=== PATIENT | female | born 1950 | race Caucasian/White ===

== ENCOUNTER 2021-08-19 16:00 | Inpatient (IN) ==
[2021-08-19 20:45] LABS: Basophils # 0.1 K/mcL (0.0-0.2); Basophils % 0.4 %; Hematocrit 39.7 % (35.3-44.9); Hemoglobin 12.2 g/dL (11.5-15.4); Immature Granulocytes % 0.5 % (0-4); Lymphocytes # 2.8 K/mcL (0.6-4.6); Lymphocytes % 17.4 %; Mean Corpuscular HGB Conc 30.7 g/dL (31.6-35.5); Mean Corpuscular Hemoglobin 28.6 pg (28.0-33.3); Mean Platelet Volume 9.8 fL (9.4-12.4); Monocytes # 0.9 K/mcL (0.0-1.3); Monocytes % 5.6 %; Neutrophils # 12.3 K/mcL (1.6-8.9); Platelet Count 475 K/mcL (140-400); Red Blood Count 4.27 M/mcL (3.82-4.97); Red Cell Distribution Width 19.3 % (11.5-14.5); Segmented Neutrophils % 76.1 %; White Blood Count 16.2 K/mcL (4.3-11.1)
[2021-08-19 21:02] LABS: Albumin 3.7 g/dL (3.5-5.7); Albumin/Globulin Ratio 0.8 (1.1-2.2); Bilirubin,Total 0.4 mg/dL (0.3-1.0); Calcium 10.6 mg/dL (8.6-10.3); Globulin 4.6 g/dL (2.4-3.5); Magnesium 2.4 mg/dL (1.6-2.6); Potassium 5.1 mEq/L (3.5-5.1); Total Protein 8.3 g/dL (6.4-8.9)
[2021-08-19 22:06] LABS: Bacteria,Urine Few per hpf (None-Few); Bilirubin,Urine Negative (Negative); Blood,Urine Negative (Negative); Clarity,Urine Turbid (Clear); Color,Urine Yellow (Yellow); Glucose,Urine (UA) Normal (Normal); Hyaline Casts,Urine Few per lpf (None Seen); Ketones,Urine Negative (Negative); Leukocyte Esterase,Urine Moderate (Negative); Mucus,Urine Few per lpf (None-Few); Nitrite,Urine Negative (Negative); PH,Urine 5.5 pH Units (5.0-8.0); Protein,Urine 50 mg/dL (Neg-Trace); Specific Gravity,Urine 1.018 (1.010-1.025); Squamous Epithelial Cell,Urine Few per hpf (None-Few); Urobilinogen,Urine Normal (Normal); WBC,Urine 15-30 per hpf (0-3)
[2021-08-19] MEDS ORDERED: cefTRIAXone 1,000 MG in 0.9 % Sodium Chloride 10 ML IVP ONE (22:11)
[2021-08-19] MEDS ORDERED: 0.9 % Sodium Chloride 1,000 ML IVC ONE ×2 (22:11→23:43)
[2021-08-20] MEDS ORDERED: Acetaminophen 325 MG TABLET PO PRN (00:11)
[2021-08-20] MEDS ORDERED: Naloxone 0.4 MG/ML INJ IVP PRN (00:11)
[2021-08-20] MEDS ORDERED: Ondansetron ODT 4 MG TAB.RAPDIS SL PRN ×2 (00:11→02:22)
[2021-08-20] MEDS ORDERED: MOM Conc 10 ML UD.LIQ PO PRN (00:11)
[2021-08-20] MEDS ORDERED: Dextrose Gel 15 GM/37.5 ML TUBE PO PRN ×2 (01:26)
[2021-08-20] MEDS ORDERED: *HR* Dextrose 50 % in Water (Syg) 50 ML SYRINGE IVP PRN (01:26)
[2021-08-20] MEDS ORDERED: D5% in Water 1,000 ML IVC PRN (01:26)
[2021-08-20 01:37] LABS: Basophils # 0.1 K/mcL (0.0-0.2); Basophils % 0.4 %; Hematocrit 38.2 % (35.3-44.9); Hemoglobin 11.4 g/dL (11.5-15.4); Immature Granulocytes % 0.5 % (0-4); Lymphocytes # 3.4 K/mcL (0.6-4.6); Lymphocytes % 20.4 %; Mean Corpuscular HGB Conc 29.8 g/dL (31.6-35.5); Mean Corpuscular Hemoglobin 28.9 pg (28.0-33.3); Mean Corpuscular Volume 96.7 fL (83.0-100.0); Mean Platelet Volume 9.9 fL (9.4-12.4); Monocytes # 1.2 K/mcL (0.0-1.3); Monocytes % 7.2 %; Neutrophils # 11.8 K/mcL (1.6-8.9); Platelet Count 421 K/mcL (140-400); Red Blood Count 3.95 M/mcL (3.82-4.97); Red Cell Distribution Width 19.4 % (11.5-14.5); Segmented Neutrophils % 71.5 %; White Blood Count 16.5 K/mcL (4.3-11.1)
[2021-08-20 01:50] LABS: Calcium 9.8 mg/dL (8.6-10.3)
[2021-08-20] MEDS ORDERED: *HR* OxyCODONE Immed Rel 5 MG TABLET PO PRN (02:23)
[2021-08-20 03:09] LABS: Sodium, Urine 11.7 mEq/L
[2021-08-20] MEDS: 0.9 % Sodium Chloride 1,000 ML IVC SCH ×3 (04:06→21:46)
[2021-08-20] MEDS: *HR* Heparin 5,000 UNIT/ML VIAL SQ SCH ×2 (04:58→16:56)
[2021-08-20] MEDS: Insulin LISPRO 300 UNITS/3 ML VIAL SUBQ SCH ×3 (07:54→16:45)
[2021-08-20] MEDS: polyethylene glycoL 3350 17 GM POWD.PACK PO SCH ×2 (07:57→21:47)
[2021-08-20 16:37] LABS: Calcium 9.4 mg/dL (8.6-10.3); Phosphorous 6.1 mg/dL (2.7-4.5); Potassium 4.6 mEq/L (3.5-5.1)
[2021-08-20] MEDS: Piperacillin/Tazobactam 3.375 GM in 0.9 % Sodium Chloride Mini Bag 100 ML IVPB SCH (16:55)
[2021-08-20] MEDS: [UNRECOGNIZED DRUG - OTHER] PO SCH (17:18)
[2021-08-21] MEDS: *HR* Heparin 5,000 UNIT/ML VIAL SQ SCH ×2 (04:34→18:02)
[2021-08-21] MEDS: Piperacillin/Tazobactam 3.375 GM in 0.9 % Sodium Chloride Mini Bag 100 ML IVPB SCH ×2 (04:34→18:02)
[2021-08-21] MEDS: 0.9 % Sodium Chloride 1,000 ML IVC SCH ×3 (04:35→22:21)
[2021-08-21] MEDS: Insulin LISPRO 300 UNITS/3 ML VIAL SUBQ SCH ×3 (08:26→17:45)
[2021-08-21] MEDS: Aspirin Enteric Coated 325 MG Tablet PO SCH (08:33)
[2021-08-21] MEDS: Gabapentin 300 MG CAPSULE PO SCH ×3 (08:33→21:08)
[2021-08-21] MEDS: Metoprolol XL (24 HR) Succ 50 MG TAB.ER.24H PO SCH (08:33)
[2021-08-21] MEDS: Venlafaxine XR (24 HR) 75 MG CAP.ER.24H PO SCH (08:33)
[2021-08-21] MEDS: polyethylene glycoL 3350 17 GM POWD.PACK PO SCH ×2 (08:34→21:08)
[2021-08-21] MEDS: [UNRECOGNIZED DRUG - OTHER] PO SCH (18:03)
[2021-08-21] MEDS: Mirtazapine 15 MG TABLET PO SCH (21:08)
[2021-08-22 02:16] LABS: Hematocrit 30.7 % (35.3-44.9); Mean Corpuscular HGB Conc 30.3 g/dL (31.6-35.5); Mean Corpuscular Hemoglobin 28.7 pg (28.0-33.3); Mean Corpuscular Volume 94.8 fL (83.0-100.0); Mean Platelet Volume 10.1 fL (9.4-12.4); Platelet Count 365 K/mcL (140-400); Red Blood Count 3.24 M/mcL (3.82-4.97); White Blood Count 11.8 K/mcL (4.3-11.1)
[2021-08-22 02:17] LABS: Hemoglobin 9.3 g/dL (11.5-15.4)
[2021-08-22 02:36] LABS: Calcium 8.7 mg/dL (8.6-10.3); Potassium 4.3 mEq/L (3.5-5.1)
[2021-08-22] MEDS: *HR* Heparin 5,000 UNIT/ML VIAL SQ SCH ×2 (04:28→17:44)
[2021-08-22] MEDS: Piperacillin/Tazobactam 3.375 GM in 0.9 % Sodium Chloride Mini Bag 100 ML IVPB SCH (04:29)
[2021-08-22] MEDS: 0.9 % Sodium Chloride 1,000 ML IVC SCH ×2 (08:22→20:11)
[2021-08-22] MEDS: Insulin LISPRO 300 UNITS/3 ML VIAL SUBQ SCH ×3 (08:22→17:13)
[2021-08-22] MEDS: Venlafaxine XR (24 HR) 75 MG CAP.ER.24H PO SCH (08:23)
[2021-08-22] MEDS: Metoprolol XL (24 HR) Succ 50 MG TAB.ER.24H PO SCH (08:23)
[2021-08-22] MEDS: Gabapentin 300 MG CAPSULE PO SCH ×3 (08:23→20:35)
[2021-08-22] MEDS: polyethylene glycoL 3350 17 GM POWD.PACK PO SCH ×2 (08:23→21:00)
[2021-08-22] MEDS: Aspirin Enteric Coated 325 MG Tablet PO SCH (08:23)
[2021-08-22 11:51] LABS: Estimated Average Glucose 131 mg/dl; Hemoglobin A1C 6.2 %
[2021-08-22] MEDS ORDERED: 0.9 % Sodium Chloride 1,000 ML IVC SCH (13:37)
[2021-08-22] MEDS: [UNRECOGNIZED DRUG - OTHER] PO SCH (17:45)
[2021-08-22] MEDS: Melatonin 3 MG TABLET PO PRN (20:35)
[2021-08-22] MEDS: Mirtazapine 15 MG TABLET PO SCH (20:35)
[2021-08-23 04:41] LABS: Basophils % 0.4 %; Hematocrit 28.6 % (35.3-44.9); Hemoglobin 8.5 g/dL (11.5-15.4); Immature Granulocytes % 0.3 % (0-4); Lymphocytes # 2.3 K/mcL (0.6-4.6); Lymphocytes % 24.5 %; Mean Corpuscular HGB Conc 29.7 g/dL (31.6-35.5); Mean Corpuscular Volume 94.1 fL (83.0-100.0); Monocytes # 0.8 K/mcL (0.0-1.3); Monocytes % 8.2 %; Neutrophils # 6.2 K/mcL (1.6-8.9); Platelet Count 355 K/mcL (140-400); Red Blood Count 3.04 M/mcL (3.82-4.97); Red Cell Distribution Width 18.9 % (11.5-14.5); Segmented Neutrophils % 66.6 %; White Blood Count 9.4 K/mcL (4.3-11.1)
[2021-08-23 04:52] LABS: % Iron Saturation 21 % (15-50); BUN/Creatinine Ratio 8 (6-26); Blood Urea Nitrogen 9 mg/dL (8-23); Calcium 8.6 mg/dL (8.6-10.3); Carbon Dioxide 23 mEq/L (23-29); Chloride 111 mEq/L (98-107); Glucose 79 mg/dL (70-105); Iron 38 mcg/dL (50-170); Magnesium 1.5 mg/dL (1.6-2.6); Osmolality,Calculated 290 (280-300); Phosphorous 5.1 mg/dL (2.7-4.5); Potassium 4.1 mEq/L (3.5-5.1); Sodium 141 mEq/L (136-145); Transferrin 128 mg/dL (203-362); eGFR For African Americans > 60 (> 60); eGFR For Non-African Americans 50 (> 60)
[2021-08-23 05:09] LABS: Ferritin 409 ng/mL (10-120)
[2021-08-23 05:14] LABS: Folate 21.3 ng/mL (3.0-16.0)
[2021-08-23 05:16] LABS: Vitamin B12 > 1500 pg/mL (250-1100)
[2021-08-23] MEDS: *HR* Heparin 5,000 UNIT/ML VIAL SQ SCH ×2 (05:40→18:14)
[2021-08-23] MEDS: Insulin LISPRO 300 UNITS/3 ML VIAL SUBQ SCH ×3 (07:17→17:14)
[2021-08-23] MEDS: Aspirin Enteric Coated 325 MG Tablet PO SCH (08:02)
[2021-08-23] MEDS: polyethylene glycoL 3350 17 GM POWD.PACK PO SCH ×2 (08:02→19:46)
[2021-08-23] MEDS: Gabapentin 300 MG CAPSULE PO SCH ×3 (08:03→19:47)
[2021-08-23] MEDS: Metoprolol XL (24 HR) Succ 50 MG TAB.ER.24H PO SCH (08:03)
[2021-08-23] MEDS: Venlafaxine XR (24 HR) 75 MG CAP.ER.24H PO SCH (08:03)
[2021-08-23] MEDS: [UNRECOGNIZED DRUG - OTHER] PO SCH (18:13)
[2021-08-23] MEDS: Mirtazapine 15 MG TABLET PO SCH (19:46)
[2021-08-23] MEDS: *HR* OxyCODONE Immed Rel 5 MG TABLET PO PRN (19:47)
[2021-08-23] MEDS: Melatonin 3 MG TABLET PO PRN (19:47)
[2021-08-24 02:54] LABS: Hematocrit 29.4 % (35.3-44.9)
[2021-08-24] MEDS: *HR* Heparin 5,000 UNIT/ML VIAL SQ SCH ×2 (05:08→17:40)
[2021-08-24] MEDS: Insulin LISPRO 300 UNITS/3 ML VIAL SUBQ SCH ×3 (07:39→15:54)
[2021-08-24] MEDS: Metoprolol XL (24 HR) Succ 50 MG TAB.ER.24H PO SCH (07:50)
[2021-08-24] MEDS: Gabapentin 300 MG CAPSULE PO SCH ×3 (07:51→21:12)
[2021-08-24] MEDS: Aspirin Enteric Coated 325 MG Tablet PO SCH (07:51)
[2021-08-24] MEDS: Venlafaxine XR (24 HR) 75 MG CAP.ER.24H PO SCH (07:51)
[2021-08-24] MEDS: polyethylene glycoL 3350 17 GM POWD.PACK PO SCH ×2 (07:51→21:12)
[2021-08-24] MEDS: *HR* OxyCODONE Immed Rel 5 MG TABLET PO PRN ×2 (13:21→21:12)
[2021-08-24] MEDS: [UNRECOGNIZED DRUG - OTHER] PO SCH (17:40)
[2021-08-24] MEDS: Melatonin 3 MG TABLET PO PRN (21:12)
[2021-08-24] MEDS: Mirtazapine 15 MG TABLET PO SCH (21:12)
[2021-08-25] MEDS: *HR* Heparin 5,000 UNIT/ML VIAL SQ SCH ×2 (05:04→16:10)
[2021-08-25] MEDS: *HR* OxyCODONE Immed Rel 5 MG TABLET PO PRN (05:08)
[2021-08-25] MEDS: polyethylene glycoL 3350 17 GM POWD.PACK PO SCH (07:57)
[2021-08-25] MEDS: Aspirin Enteric Coated 325 MG Tablet PO SCH (07:57)
[2021-08-25] MEDS: Venlafaxine XR (24 HR) 75 MG CAP.ER.24H PO SCH (07:57)
[2021-08-25] MEDS: Metoprolol XL (24 HR) Succ 50 MG TAB.ER.24H PO SCH (07:57)
[2021-08-25] MEDS: Gabapentin 300 MG CAPSULE PO SCH ×2 (07:57→15:41)
[2021-08-25] MEDS: Insulin LISPRO 300 UNITS/3 ML VIAL SUBQ SCH ×3 (09:12→16:44)
[2021-08-25 11:48] VITALS: BP 103/68; PULSE 88; TEMP 99.5; O2SAT 92
[2021-08-25] MEDS: [UNRECOGNIZED DRUG - OTHER] PO SCH (16:11)
== END 2021-08-25 16:57 | disposition home health service (06) | DRG 683 ==
LOC: 3BNU 16:00 → EMEROOARM 16:00 → 3BNU 08-20 00:52 → SUATTDRO 08-20 03:05 → 3BNU 08-24 20:58
PROVIDERS: ADMIT Internal Medicine; ATTEND Internal Medicine